=== PATIENT | male | born 1970 | race Caucasian/White ===

== ENCOUNTER → 2018-03-06 09:39 | Outpatient (CLI) | payer OTHER, SELFPAY ==
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
--- NOTE | 2018-03-06 09:44 | DI.RAD.S_ITS ---
PROCEDURE: XR CERVICAL SPINE 2V OR 3V INDICATIONS: CERVICAL STRAIN TECHNIQUE: 2 view(s) of the cervical spine were acquired. COMPARISON: None. FINDINGS: Bones: No fractures or dislocations to the T1 level. The lateral masses of C1 appear intact on the odontoid view. No suspicious bony lesions. Mild intervertebral degenerative joint space thinning at C5-6 and C6-7, without subluxation Soft tissues: No prevertebral soft tissue swelling. IMPRESSION: Only a small degree of degenerative disc reduction is seen at C5-6 through C6-7 and no trauma is found nor is there a subluxation associated. Dictated by: Sanjay Orlando M.D. on 03/06/2018 at 10:51 Approved by: Sanjay Orlando M.D. on 03/06/2018 at 10:51
== END ==
PROVIDERS: PCP Family Medicine
DX: M54.2 Cervicalgia (principal); S16.1XXA Strain of muscle, fascia and tendon at neck level, initial encounter; S46.911A Strain of unspecified muscle, fascia and tendon at shoulder and upper arm level, right arm, initial encounter
CPT/HCPCS: 72040; 73030

== ENCOUNTER → 2018-10-01 13:39 | Outpatient (CLI) | payer OTHER, SELFPAY ==
[2018-10-01 13:52] LABS: Add Manual Diff / Slide Review NO; Basophils Absolute Auto 100 /uL (0-100); Basophils Percent Auto 1.4 % (0-2); Eosinophils Absolute Auto 100 /uL (0-450); Eosinophils Percent Auto 2.3 % (2-4); Hematocrit 46.1 % (41-53); Hemoglobin 16.3 g/dL (13.5-17.5); Lymphocytes Absolute Auto 1600 /uL (1100-4500); Lymphocytes Percent Auto 37.4 % (25-40); Mean Corpuscular HGB Conc 35.3 % (30-36); Mean Corpuscular Hemoglobin 31.8 PG (26-34); Mean Corpuscular Volume 90.1 fL (80-100); Monocytes Absolute Auto 500 /uL (0-900); Neutrophils Absolute Auto 2000 /uL (1500-7000); Neutrophils Percent Auto 47.9 % (50-75); Platelet Count 217 X10^3/uL (150-400); Red Blood Cell Count 5.12 X10^6/uL (4.5-5.9); Red Cell Distribution Width 12.9 % (11.6-14.8); White Blood Cell Count 4.3 X10^3/uL (4.5-11.0)
[2018-10-01 20:33] LABS: Alanine Aminotransferase 57 IU/L (21-72); Albumin 4.4 g/dL (3.5-5.0); Albumin Globulin Ratio 1.6 (1.0-2.8); Alkaline Phosphatase 77 U/L (38-126); Aspartate Aminotransferase 36 IU/L (17-59); Bilirubin Total 0.6 mg/dL (0.2-1.3); Blood Urea Nitrogen 16 mg/dL (9-20); Calcium 9.5 mg/dL (8.4-10.2); Carbon Dioxide 27 mmol/L (22-32); Chloride 103 mmol/L (98-107); Cholesterol 228 mg/dL (140-199); Estimated Glomerular Filt Rate > 60.0 mL/min (>60); Globulin 2.8 g/dL (1.7-4.1); Glucose 107 mg/dL (70-100); HDL Cholesterol 47 mg/dL (40-60); HEMOLYSIS < 15 (0-50); LDL Cholesterol Calculated 148 mg/dL (<100); Potassium 4.4 mmol/L (3.4-5.1); Sodium 139 mmol/L (137-145); Total Protein 7.2 g/dL (6.3-8.2); Triglycerides 163 mg/dL (35-150)
[2018-10-04 08:40] LABS: Sex Hormone Binding Globulin 34 nmol/L (10-50); Testosterone, Bioavailable 79.6 ng/dL (110.0-575.0); Testosterone, Total 312 ng/dL (250-1100); Testosterone,Free 38.7 pg/mL (46.0-224.0)
[2018-10-05 11:04] LABS: Sex Hormone Binding Globulin 22 nmol/L (10-50)
[2018-10-07 12:49] LABS: Albumin 4.5
== END ==
PROVIDERS: PCP Physician Assistant; Visit Provider Physician Assistant
DX: E03.9 Hypothyroidism, unspecified (principal); E78.5 Hyperlipidemia, unspecified; K21.9 Gastro-esophageal reflux disease without esophagitis
CPT/HCPCS: 36415; 80053; 80061; 82040; 84270; 84403; 85025

== ENCOUNTER → 2018-12-02 08:41 | Outpatient (CLI) | payer OTHER, SELFPAY ==
--- NOTE | 2018-12-02 08:42 | DI.RAD.S_ITS ---
PROCEDURE: FL BARIUM SWALLOW W SPEECH INDICATIONS: Dysphagia; food gets stuck; trouble w/saliva TECHNIQUE: Examination was conducted in conjunction with speech pathology per standard protocol. In the lateral projection, filming was performed of the patient swallowing. AP projection filming may also be performed with patient swallowing. COMPARISON: [facility], , BARIUM SWALLOW, 07/27/2014, 8:35. FINDINGS: Function: The oral preparatory phase appears normal, with proper containment. The subsequent oral propulsive phase, pharyngeal phase, and esophageal phase of swallowing also appear normal with all proffered substances. No laryngotracheal penetration or aspiration There is mild residue. Morphology: No cricopharyngeal bar is identified. No cervical esophageal webs. No Zenker's diverticulum. No strictures. IMPRESSION: No tracheal aspiration seen. Dictated by: Deniz Bowden M.D. on 12/02/2018 at 11:43 Approved by: Deniz oBwden M.D. on 12/02/2018 at 11:43
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
== END ==
PROVIDERS: PCP Physician Assistant; Visit Provider Physician Assistant
DX: R13.10 Dysphagia, unspecified (principal); K21.9 Gastro-esophageal reflux disease without esophagitis
CPT/HCPCS: 74230; 92611

== ENCOUNTER 2018-12-31 15:16 | Outpatient (RCR) | payer OTHER, SELFPAY ==
--- NOTE | 2018-12-31 18:31 | ST.IPDYTX ---
Care Team Visit Care Team Role Provider Type Felicia Muro PA-C Attending Provider Advanced Data Operations Director Primary Care Provider Specialty: Medical Address: [address] [place] [address], [address] Email: [email or web address] PROJECT INSPECTOR Dysphagia Treatment PROJECT INSPECTOR Dysphagia Treatment Start: 12/31/18 17:39 Freq: Status: Active Protocol: Document 12/31/18 17:39 LNK (Rec: 12/31/18 18:29 LNK [email or web address]) Dysphagia Treatment Session Time Visit Start Time 15:30 Visit Stop Time 15:15 Total Visit Minutes 45 Visit Information Visit Number 1 Plan of Care Dates 12/31/18-04/02/19 Insurance Information [facility] Setting Assessment Location Outpatient Care Visit Type Note Type Treatment Note Next Note Type Next Note Type Treatment Note Patient Information Identification Type Name Subjective Observations Uriah was on time for his appointment Treatment Treatment Activities Reviewed the results of pt's MBS report and video with him. Discussion and patient education regarding normal anatomy and physiology with swallowing. Reviewed with pt areas of weakness in the linguapharyngeal areas. Discussed upcoming ENT appointment as voice was becoming more hoase as the session continued. Swallowing exercises were prescribed : Musako and the Howard maneuver. Instruction verbally as well as written directions were provided. Pt practiced each 3 times. Recommended 50-100 repetitions per day to achieve max benefit. Pt agrees. Assessment Patient Response to Treatment Excellent Rehab Potential Excellent Aspiration Precautions Recommended Precautions Howard Maneuver Additional Precautions Musako Treatment Plan Appropriate for Continued Therapy Yes Dysphagia Goals Pt will perform HEP as directed. Pt will demonstrate increased ability to perform anterior hyoid movement as determined by palpation. Pt will report a reduction in a sense of globus and difficulty with swallowing. Referrals/Other Recommended Referrals GI Consult ENT Consult
--- NOTE | 2019-02-27 11:34 | ST.IPDYTX ---
Visit Care Team Role Provider Type Felicia Muro PA-C Attending Provider Advanced Consulting Practice Director Primary Care Provider Specialty: Medical Address: [address] [place] [address], [address], [place], [address] Email: [email or web address] DNA ANALYST Dysphagia Treatment DNA ANALYST Dysphagia Treatment Start: 12/31/18 17:39 Freq: Status: Active Protocol: Document 02/27/19 11:31 LNK (Rec: 02/27/19 11:34 LNK [email or web address]) Dysphagia Treatment Visit Type Note Type Discharge Summary Treatment Treatment Activities On 12/31/18, this DNA ANALYST reviewed the results of pt's MBS report and video with him. Discussion and patient education regarding normal anatomy and physiology with swallowing. Reviewed with pt areas of weakness in the linguapharyngeal areas. Discussed upcoming ENT appointment as voice was becoming more hoarse as the session continued. Swallowing exercises were prescribed : Musako and the Howard manuever. Instruction verbally as well as wrttien directions were provided. Pt practiced each 3 times. Recommended 50-100 repetitions per day to achieve max benefit. Pt agreed. Assessment Assessment of Improvement pt has not returned to this clinic for follow up since . Will discharge at this time Treatment Plan Therapy Recommendations Discharge from therapy at this time
== END 2019-03-14 11:39 | disposition home or self-care (01) ==
LOC: SP 15:16
PROVIDERS: PCP Physician Assistant; Visit Provider Physician Assistant
DX: R13.10 Dysphagia, unspecified (principal)
CPT/HCPCS: 92526

== ENCOUNTER → 2019-01-27 07:12 | Outpatient (CLI) | payer OTHER, SELFPAY ==
[2019-01-27 09:22] LABS: Cholesterol 239 mg/dL (140-199); HDL Cholesterol 44 mg/dL (40-60); LDL Cholesterol Calculated 165 mg/dL (<100); Triglycerides 148 mg/dL (35-150)
[2019-01-27 09:52] LABS: Prostate Specific Antigen Scrn 0.452 ng/mL (0.1-4.0)
[2019-01-27 09:54] LABS: Thyroid Stimulating Hormone 2.28 uIU/mL (0.47-4.68)
== END ==
PROVIDERS: PCP Physician Assistant; Visit Provider Physician Assistant
DX: E78.2 Mixed hyperlipidemia (principal); Z12.5 Encounter for screening for malignant neoplasm of prostate; E03.9 Hypothyroidism, unspecified
CPT/HCPCS: 36415; 80061; 84443; G0103

== ENCOUNTER 2019-06-02 15:21 | Outpatient (RCR) | payer OTHER, SELFPAY ==
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
--- NOTE | 2019-08-05 11:31 | ST.OPDS ---
Visit Care Team Role Provider Type Felicia Muro PA-C Attending Provider Advanced Body Service Team Member Primary Care Provider Address: [address] [place] [address], [address], [place], [address] CHARGING CRANE OPERATOR Treatment Note CHARGING CRANE OPERATOR Treatment Note Start: 06/05/19 11:54 Freq: Status: Active Protocol: Document 08/05/19 11:28 LNK (Rec: 08/05/19 11:31 LNK [email or web address]) Speech Pathology Treatment Note Visit Type Note Type Discharge Summary General Information General Information The pt is here today to evaluate his difficulty with his voice; he reports being is unable to speaking for a full day. He described that his voice is ok in the morning and will fade to near aphonic by night time. He reported that he had not seen an ENT re : his voice. He also reported a lot of phlegm and mucous in his throat, especially in the morning. He will often clear his throat several times after waking up. His s/sx suggest that his vocal difficulty may be related to his dx of GERD/ LPR. [ End ] The pt presented with breathy vocal quality which increases during to day to near aphonia by the end of the day. His evaluation results are mixed: 1) his MPT, pitch glide and s/ z ration indicate poor airway control for voicing. These results appear to indicate vocal fold swelling and/or stiffness. However, the pt's jitter and shimmer values as well as his pitch appear to be within normal expectations. The pt's responses on the CAPE -V indicate mixed results as well. His score of 54 on the Voice Handicap Index (VHI) is considered to have a moderate impact on the pt's daily activities. He completed the Reflux Symptom Index which resulted in a score of 26. According to the normative data, any score over 13 may be indicative of severe reflux disease. Assessment Assessment of Improvement Uriah has not been seen for ST since his initial evaluation Plan Amount of Therapy Recommended No Further Therapy Frequency of Treatment No Further Therapy Therapy Recommendations Discharge from Speech Therapy
== END 2019-08-05 13:09 ==
LOC: SP 15:21
PROVIDERS: PCP Physician Assistant; Visit Provider Physician Assistant
DX: R13.10 Dysphagia, unspecified (principal)
CPT/HCPCS: 92520; 92524

== ENCOUNTER 2019-11-01 08:11 | Emergency (ER) | payer OTHER, SELFPAY ==
[2019-11-01 08:12] VITALS: BP 146/88; PULSE 72; RESP 18; TEMP 36.3; O2SAT 98; BMI 27.8
--- NOTE | 2019-11-01 08:36 | ED_ITS ---
HPI - Wound/Laceration General Chief Complaint: Wound/Laceration Stated Complaint: possible shingles face Time Seen by Provider: 11/01/19 08:13 Source: patient Mode of arrival: Ambulatory Limitations: no limitations History of Present Illness HPI narrative: 49-year-old male nonsmoker with history of GERD presents with a chief complaint of a painful ?rash? on the right side of his face. He states that he has noticed a burning or tingling sensation and then developed what he thought at 1st was an ingrown hair after shaving but states that the sensation of tingling and burning pain is moving upwards on his face. He denies any fever or chills. He denies any history of the same. He did have chickenpox as a child. He denies any headache, blurred vision or eye pain. Onset (ago): day(s) Location: face Related Data Home Medications Medication Instructions Recorded Confirmed fluorouracil 5 % topical cream 1 applictn TOP BID PRN 09/30/18 09/23/19 levothyroxine 125 mcg tablet 125 mcg PO DAILY 09/30/18 09/23/19 pantoprazole 40 mg tablet,delayed See Rx Instructions PO 3XW tab 09/30/18 09/23/19 release red yeast rice 600 mg capsule 1,200 mg PO BID 09/30/18 09/23/19 Previous Rx's Medication Instructions Recorded tadalafil 5 mg tablet 5 mg PO DAILY #90 tab 06/02/19 amoxicillin 875 mg tablet 875 mg PO BID #14 tab 09/23/19 fexofenadine 180 mg tablet 180 mg PO DAILY #30 tab 10/28/19 mupirocin 1 applictn TOP BID #15 gram 11/01/19 valacyclovir 1,000 mg PO TID 7 Days #21 tab 11/01/19 Allergies Allergy/AdvReac Type Severity Reaction Status Date / Time [id number] Reductase AdvReac Severe muscle pain Verified 11/01/19 08:18 Inhibitor Review of Systems Constitutional Constitutional: Denies chills, Denies fatigue, Denies fever(s), Denies frequent falls, Denies lethargy and Denies weakness Eyes Eyes: Denies change in vision, Denies eye discharge, Denies irritation and Denies loss of vision ENT Ears, Nose, Mouth, and Throat: Denies change in voice, Denies dizziness, Denies neck pain, Denies sore throat and Denies throat swelling Cardiovascular Cardiovascular: Denies chest pain, Denies irregular heart rhythm, Denies lightheadedness, Denies palpitations, Denies dyspnea, Denies dyspnea on exertion and Denies orthopnea Respiratory Respiratory: Denies cough, Denies dyspnea, Denies dyspnea on exertion and Denies wheezing Gastrointestinal Gastrointestinal: Denies abdominal pain, Denies change in bowel habits, Denies diarrhea, Denies nausea and Denies vomiting Genitourinary Genitourinary: Denies hematuria, Denies flank pain, Denies urinary incontinence and Denies urinary urgency Musculoskeletal Musculoskeletal: Denies back pain, Denies muscle weakness, Denies neck pain, Denies numbness and Denies tingling Integumentary/Breasts Skin/Breast: Denies pruritus, Reports erythema, Reports rash, Reports skin pain and Denies wounds Neurologic Neurologic: Denies behavioral changes, Denies confusion, Denies dizziness, Denies frequent falls, Denies loss of vision, Denies numbness, Denies tingling and Denies weakness Psychiatric Psychiatric: Denies anxiety, Denies behavioral changes, Denies confusion, Denies depression, Denies homicidal ideation and Denies suicidal ideation Endocrine Endocrine: Denies fatigue, Denies flushing and Denies palpitations Hematologic/Lymphatic Hematologic/Lymphatic: Denies easy bruising Allergic/Immunologic Allergic/Immunologic: Denies urticaria, Denies throat swelling and Denies wheezing Patient History Social History Smoking Status: Never smoker second hand exposure: No alcohol intake: current (mixed cocktail 3 times a week. ) substance use type: does not use Smoking Status: Never smoker Exam Narrative Exam Narrative: GEN: AOx3 and in mild distress EYES: Pupils are equal, round, and reactive to light and accommodation. Extraoccular muscles are intact bilaterally. There is no subconjunctival hemorrhage or exudate. CHEST: Lungs are clear to auscultation bilaterally and free of wheezes, rales, or rhonchi. Heart rate is regular rhythm, there are no murmurs, clicks, rubs, or gallops. There is no chest wall tenderness. ABD: Abdomen is soft and nontender. There is no guarding or rebound. Bowel sounds are normal in all 4 quadrants. There is no mass or organomegaly. EXT: Full painless ROM of all extremities with no loss of sensation or strength. SKIN: Few blisters like lesions on right side of cheek with minimal surrounding erythema. Warm, pink, and dry. No erythema or rash otherwise Initial Vital Signs Initial Vital Signs: Vital Signs Temperature 97.3 F L 11/01/19 08:12 Pulse Rate 72 11/01/19 08:12 Respiratory Rate 18 11/01/19 08:12 Blood Pressure 146/88 H 11/01/19 08:12 Pulse Oximetry 98 11/01/19 08:12 Course Vital Signs Vital signs: Vital Signs - 8 hr 11/01/19 08:12 Temperature 97.3 F L Pulse Rate 72 Respiratory Rate 18 Blood Pressure 146/88 H Pulse Oximetry 98 MDM - Wound/Laceration MDM Narrative Medical decision making narrative: Cellulitis or folliculitis considered given skin pain and possible pustule, however shingles also considered given burning, tingling sensation to skin prior to rash showing. Return precautions given and discussion provided to patient answered questions to his apparent satisfaction. Discharge Plan Departure Patient Disposition: Home Clinical Impression: Folliculitis Shingles Qualifiers: Herpes zoster complications: without complications Qualified Code(s): B02.9 - Zoster without complications Discharge Date/Time: 11/01/19 08:48 Instructions: DI for Shingles, DI for Folliculitis Activity Restrictions/Additional Instructions: *You have been diagnosed with [foliculitis versus early facial shingles] *What to do: *Take medications as directed: electronically transmitted to [facility] *Follow up with your primary care provider in 2-3 days, call for an appointment. Let them know you were seen in the Emergency Department and that we ask that you be seen in follow up *Return to ER if you should have any new, worsening or concerning symptoms, such as [eye pain, blurring of vision, excessive tearing, facial swelling or other bothersome symptoms ] Prescriptions: New mupirocin 2 % ointment 1 applictn TOP BID Qty: 15 RF: 0 valacyclovir 1 gram tablet 1,000 mg PO TID 7 Days Qty: 21 RF: 0 No Action amoxicillin 875 mg tablet 875 mg PO BID Qty: 14 RF: 0 tadalafil 5 mg tablet 5 mg PO DAILY Qty: 90 RF: 2 fexofenadine [Rachel Allergy] 180 mg tablet 180 mg PO DAILY Qty: 30 RF: 0 fluorouracil 5 % cream 1 applictn TOP BID PRNRF: 0 pantoprazole 40 mg tablet,delayed release (DR/EC) See Rx Instructions PO 3XW RF: 0 red yeast rice 600 mg capsule 1,200 mg PO BID RF: 0 levothyroxine [Synthroid] 125 mcg tablet 125 mcg PO DAILY RF: 0 Referrals: [facility] [Outside] Felicia Muro PA-C [Primary Care Provider] -
== END 2019-11-01 08:48 | disposition home or self-care (01) ==
PROVIDERS: Emergency Provider Emergency Medicine; PCP Physician Assistant
DX: B02.9 Zoster without complications (principal); L73.9 Follicular disorder, unspecified
CPT/HCPCS: 99281

== ENCOUNTER → 2020-03-15 12:54 | Outpatient (CLI) | payer OTHER, SELFPAY ==
--- NOTE | 2020-03-15 | DI.RAD.S_ITS ---
PROCEDURE: XR ANKLE LT MIN 3V INDICATIONS: Pain TECHNIQUE: 3 views of the ankle were acquired. COMPARISON: None. FINDINGS: Bones: No fractures or dislocations. Ankle mortise is normally aligned. No suspicious bony lesions. Soft tissues: No tibiotalar joint effusion. Achilles tendon appears normal. IMPRESSION: No fracture. If the patient's symptoms do not improve recommend followup radiographs in 10 days to assess for healing sclerosis/occult injury. Dictated by: Deniz Bowden M.D. on 03/15/2020 at 14:20 Approved by: Deniz Bowden M.D. on 03/15/2020 at 14:29
== END ==
PROVIDERS: PCP Family Medicine; Referring Provider Family Medicine; Visit Provider Family Medicine
DX: S93.402A Sprain of unspecified ligament of left ankle, initial encounter (principal); M25.572 Pain in left ankle and joints of left foot; X58.XXXA Exposure to other specified factors, initial encounter
CPT/HCPCS: 73610

== ENCOUNTER → 2020-06-15 11:22 | Outpatient (CLI) | payer OTHER, SELFPAY ==
[2020-06-15 11:43] LABS: Add Manual Diff / Slide Review NO; Basophils Absolute Auto 100 /uL (0-100); Basophils Percent Auto 1.4 % (0-2); Eosinophils Absolute Auto 100 /uL (0-450); Eosinophils Percent Auto 1.9 % (2-4); Hematocrit 54.7 % (41-53); Hemoglobin 18.6 g/dL (13.5-17.5); Lymphocytes Absolute Auto 1400 /uL (1100-4500); Lymphocytes Percent Auto 34.9 % (25-40); Mean Corpuscular HGB Conc 34.1 % (30-36); Mean Corpuscular Hemoglobin 31.3 PG (26-34); Mean Corpuscular Volume 91.8 fL (80-100); Monocytes Absolute Auto 500 /uL (0-900); Monocytes Percent Auto 13.1 % (3-14); Neutrophils Absolute Auto 2000 /uL (1500-7000); Neutrophils Percent Auto 48.7 % (50-75); Platelet Count 248 X10^3/uL (150-400); Red Blood Cell Count 5.96 X10^6/uL (4.5-5.9); Red Cell Distribution Width 13.4 % (11.6-14.8); White Blood Cell Count 4.1 X10^3/uL (4.5-11.0)
[2020-06-16 12:31] LABS: 585 Gram Check PASS; Dizziness NO; Postdiastolic BP 82; Postsystolic BP 125; Prediastolic 79; Presystolic 133; Pulse 74; Site of phlebotomy LAC; Swelling NO; Therapeutic Phleb Comment NO COMMENT; Zero Check Sebra Scale PASS
== END ==
PROVIDERS: PCP Family Medicine; Referring Provider Family Medicine; Visit Provider Family Medicine
DX: Z14.8 Genetic carrier of other disease (principal); D75.1 Secondary polycythemia
CPT/HCPCS: 36415; 85025; 99195

== ENCOUNTER → 2020-07-14 11:51 | Outpatient (CLI) | payer OTHER, SELFPAY ==
[2020-07-14 12:22] LABS: Add Manual Diff / Slide Review NO; Basophils Absolute Auto 0 /uL (0-100); Basophils Percent Auto 1.2 % (0-2); Eosinophils Absolute Auto 100 /uL (0-450); Eosinophils Percent Auto 1.8 % (2-4); Hematocrit 53.5 % (41-53); Hemoglobin 18.1 g/dL (13.5-17.5); Lymphocytes Absolute Auto 1400 /uL (1100-4500); Lymphocytes Percent Auto 36.5 % (25-40); Mean Corpuscular HGB Conc 33.8 % (30-36); Mean Corpuscular Hemoglobin 31.2 PG (26-34); Mean Corpuscular Volume 92.5 fL (80-100); Monocytes Absolute Auto 500 /uL (0-900); Monocytes Percent Auto 12.8 % (3-14); Neutrophils Absolute Auto 1800 /uL (1500-7000); Neutrophils Percent Auto 47.7 % (50-75); Platelet Count 235 X10^3/uL (150-400); Red Blood Cell Count 5.79 X10^6/uL (4.5-5.9); Red Cell Distribution Width 13.6 % (11.6-14.8); White Blood Cell Count 3.9 X10^3/uL (4.5-11.0)
[2020-07-14 12:40] LABS: 585 Gram Check PASS; Dizziness NO; Postdiastolic BP 87; Postsystolic BP 138; Prediastolic 85; Presystolic 143; Pulse 67; Site of phlebotomy RAC; Swelling NO; Therapeutic Phleb Comment NO COMMENT; Zero Check Sebra Scale PASS
== END ==
PROVIDERS: PCP Family Medicine; Referring Provider Family Medicine; Visit Provider Family Medicine
DX: Z14.8 Genetic carrier of other disease (principal); D75.1 Secondary polycythemia
CPT/HCPCS: 36415; 85025; 99195

== ENCOUNTER → 2020-08-11 12:00 | Outpatient (CLI) | payer OTHER, SELFPAY ==
[2020-08-11 12:40] LABS: 585 Gram Check PASS; Prediastolic 87; Presystolic 143; Pulse 67; Site of phlebotomy LAC; Zero Check Sebra Scale PASS
[2020-08-11 12:41] LABS: Dizziness NO; Postdiastolic BP 93; Postsystolic BP 140; Swelling NO; Therapeutic Phleb Comment NO COMMENT
[2020-08-11 14:05] LABS: Add Manual Diff / Slide Review NO; Basophils Absolute Auto 100 /uL (0-100); Basophils Percent Auto 1.1 % (0-2); Eosinophils Absolute Auto 100 /uL (0-450); Eosinophils Percent Auto 2.2 % (2-4); Hematocrit 52.3 % (41-53); Hemoglobin 17.7 g/dL (13.5-17.5); Lymphocytes Absolute Auto 1600 /uL (1100-4500); Lymphocytes Percent Auto 30.8 % (25-40); Mean Corpuscular HGB Conc 33.9 % (30-36); Mean Corpuscular Hemoglobin 31.5 PG (26-34); Mean Corpuscular Volume 93.2 fL (80-100); Monocytes Absolute Auto 500 /uL (0-900); Neutrophils Absolute Auto 2900 /uL (1500-7000); Neutrophils Percent Auto 55.9 % (50-75); Platelet Count 248 X10^3/uL (150-400); Red Blood Cell Count 5.61 X10^6/uL (4.5-5.9); Red Cell Distribution Width 13.1 % (11.6-14.8); White Blood Cell Count 5.3 X10^3/uL (4.5-11.0)
[2020-08-18 13:44] LABS: SARS CoV19 IgG Negative
== END ==
PROVIDERS: PCP Family Medicine; Referring Provider Family Medicine; Visit Provider Family Medicine
DX: Z14.8 Genetic carrier of other disease (principal); D75.1 Secondary polycythemia; Z20.822 Contact with and (suspected) exposure to COVID-19; J06.9 Acute upper respiratory infection, unspecified
CPT/HCPCS: 85025; 86769; 99195

== ENCOUNTER → 2020-09-08 11:53 | Outpatient (CLI) | payer OTHER, SELFPAY ==
[2020-09-08 12:56] LABS: Zero Check Sebra Scale PASS
[2020-09-08 12:57] LABS: 585 Gram Check PASS; Dizziness NO; Postdiastolic BP 89; Postsystolic BP 149; Prediastolic 87; Presystolic 141; Pulse 63; Site of phlebotomy RAC; Swelling NO; Therapeutic Phleb Comment NO COMMENT
[2020-09-08 13:09] LABS: Add Manual Diff / Slide Review NO; Basophils Absolute Auto 100 /uL (0-100); Basophils Percent Auto 1.1 % (0-2); Eosinophils Absolute Auto 100 /uL (0-450); Eosinophils Percent Auto 2.1 % (2-4); Hematocrit 48.8 % (41-53); Hemoglobin 16.9 g/dL (13.5-17.5); Lymphocytes Absolute Auto 1500 /uL (1100-4500); Lymphocytes Percent Auto 33.4 % (25-40); Mean Corpuscular HGB Conc 34.7 % (30-36); Mean Corpuscular Hemoglobin 31.3 PG (26-34); Mean Corpuscular Volume 90.2 fL (80-100); Monocytes Absolute Auto 500 /uL (0-900); Monocytes Percent Auto 10.9 % (3-14); Neutrophils Absolute Auto 2400 /uL (1500-7000); Neutrophils Percent Auto 52.5 % (50-75); Platelet Count 249 X10^3/uL (150-400); Red Blood Cell Count 5.41 X10^6/uL (4.5-5.9); White Blood Cell Count 4.5 X10^3/uL (4.5-11.0)
[2020-09-09 13:19] LABS: SARS CoV19 IgG Negative (Negative)
== END ==
PROVIDERS: PCP Family Medicine; Referring Provider Family Medicine; Visit Provider Family Medicine
DX: Z86.16 Personal history of COVID-19 (principal); Z14.8 Genetic carrier of other disease; D75.1 Secondary polycythemia
CPT/HCPCS: 36415; 85025; 86769; 99195

== ENCOUNTER → 2021-02-03 10:01 | Outpatient (CLI) | payer OTHER, SELFPAY ==
[2021-02-03 10:36] LABS: 585 Gram Check PASS; Dizziness NO; Postdiastolic BP 86; Postsystolic BP 126; Prediastolic 86; Presystolic 126; Pulse 61; Site of phlebotomy LAC; Swelling NO; Temperature 98.2; Therapeutic Phleb Comment NO COMMENT; Zero Check Sebra Scale PASS
[2021-02-03 11:45] LABS: Add Manual Diff / Slide Review NO; Basophils Absolute Auto 0 /uL (0-100); Basophils Percent Auto 1.2 % (0-2); Eosinophils Absolute Auto 200 /uL (0-450); Eosinophils Percent Auto 5.1 % (2-4); Hematocrit 51.7 % (41-53); Hemoglobin 17.1 g/dL (13.5-17.5); Lymphocytes Absolute Auto 1500 /uL (1100-4500); Lymphocytes Percent Auto 39.1 % (25-40); Mean Corpuscular Hemoglobin 28.2 PG (26-34); Mean Corpuscular Volume 85.7 fL (80-100); Monocytes Absolute Auto 400 /uL (0-900); Monocytes Percent Auto 11.8 % (3-14); Neutrophils Absolute Auto 1600 /uL (1500-7000); Neutrophils Percent Auto 42.8 % (50-75); Platelet Count 200 X10^3/uL (150-400); Red Blood Cell Count 6.04 X10^6/uL (4.5-5.9); Red Cell Distribution Width 16.2 % (11.6-14.8); White Blood Cell Count 3.8 X10^3/uL (4.5-11.0)
== END ==
PROVIDERS: PCP Family Medicine; Referring Provider Family Medicine; Visit Provider Family Medicine
DX: Z14.8 Genetic carrier of other disease (principal); D75.1 Secondary polycythemia
CPT/HCPCS: 85025; 99195

== ENCOUNTER → 2021-03-16 11:44 | Outpatient (CLI) | payer OTHER, SELFPAY ==
[2021-03-16 12:32] LABS: Zero Check Sebra Scale PASS
[2021-03-16 12:33] LABS: 585 Gram Check PASS; Dizziness NO; Postdiastolic BP 88; Postsystolic BP 132; Prediastolic 88; Presystolic 143; Pulse 64; Site of phlebotomy RAC; Swelling NO; Temperature 97.9; Therapeutic Phleb Comment NO COMMENT
== END ==
PROVIDERS: PCP Family Medicine; Referring Provider Family Medicine; Visit Provider Family Medicine
DX: Z14.8 Genetic carrier of other disease (principal); D75.1 Secondary polycythemia
CPT/HCPCS: 99195

== ENCOUNTER → 2021-04-05 12:36 | Outpatient (CLI) | payer OTHER, SELFPAY ==
--- NOTE | 2021-04-05 | DI.RAD.S_ITS ---
PROCEDURE: XR CHEST 2V INDICATIONS: Cough/Viral Illness TECHNIQUE: 2 views of the chest were acquired. COMPARISON: [facility], , CHEST 2 VIEW, 09/25/2016, 15:40. FINDINGS: Surgical changes and devices: None. Lungs and pleura: Lungs are clear. No pleural effusions or pneumothorax. Mediastinum: Mediastinal contours are normal. Heart size is normal. Bones and chest wall: No suspicious bony abnormalities. Soft tissues appear unremarkable. IMPRESSION: No acute cardiopulmonary abnormality. Dictated by: Jose Guadalupe Ritchie M.D. on 04/05/2021 at 12:49 Approved by: Jose Guadalupe Ritchie M.D. on 04/05/2021 at 12:50
== END ==
PROVIDERS: PCP Family Medicine; Referring Provider Family Medicine; Visit Provider Family Medicine
DX: R05.9 Cough, unspecified (principal); B34.9 Viral infection, unspecified
CPT/HCPCS: 71046

== ENCOUNTER → 2021-04-19 11:56 | Outpatient (CLI) | payer OTHER, SELFPAY ==
[2021-04-19 12:37] LABS: 585 Gram Check PASS; Dizziness NO; Postdiastolic BP 86; Postsystolic BP 139; Prediastolic 79; Presystolic 124; Pulse 74; Site of phlebotomy RAC; Swelling NO; Temperature 98.3; Therapeutic Phleb Comment NO COMMENT; Zero Check Sebra Scale PASS
== END ==
PROVIDERS: PCP Family Medicine; Referring Provider Family Medicine; Visit Provider Family Medicine
DX: Z14.8 Genetic carrier of other disease (principal); D75.1 Secondary polycythemia
CPT/HCPCS: 99195

== ENCOUNTER → 2021-05-17 11:59 | Outpatient (CLI) | payer OTHER, SELFPAY ==
[2021-05-17 12:40] LABS: 585 Gram Check PASS; Postdiastolic BP 75; Postsystolic BP 128; Prediastolic 82; Presystolic 125; Pulse 74; Site of phlebotomy LAC; Swelling NO; Temperature 97.7; Zero Check Sebra Scale PASS
[2021-05-17 12:41] LABS: Add Manual Diff / Slide Review NO; Basophils Absolute Auto 100 /uL (0-100); Basophils Percent Auto 1.5 % (0-2); Dizziness NO; Eosinophils Absolute Auto 100 /uL (0-450); Eosinophils Percent Auto 2.5 % (2-4); Hematocrit 44.1 % (41-53); Hemoglobin 14.5 g/dL (13.5-17.5); Lymphocytes Absolute Auto 1400 /uL (1100-4500); Lymphocytes Percent Auto 36.6 % (25-40); Mean Corpuscular HGB Conc 32.9 % (30-36); Mean Corpuscular Hemoglobin 26.9 PG (26-34); Mean Corpuscular Volume 81.7 fL (80-100); Monocytes Absolute Auto 400 /uL (0-900); Monocytes Percent Auto 10.4 % (3-14); Neutrophils Absolute Auto 1900 /uL (1500-7000); Platelet Count 283 X10^3/uL (150-400); Red Cell Distribution Width 15.3 % (11.6-14.8); Therapeutic Phleb Comment NO COMMENT; White Blood Cell Count 3.8 X10^3/uL (4.5-11.0)
== END ==
PROVIDERS: PCP Family Medicine; Referring Provider Family Medicine; Visit Provider Family Medicine
DX: Z14.8 Genetic carrier of other disease (principal); D75.1 Secondary polycythemia
CPT/HCPCS: 36415; 85025; 99195

== ENCOUNTER → 2022-06-19 10:48 | Outpatient (CLI) | payer OTHER, SELFPAY ==
--- NOTE | 2022-06-19 | DI.RAD.S_ITS ---
PROCEDURE: XR CHEST 2V INDICATIONS: dyspnea TECHNIQUE: 2 views of the chest were acquired. COMPARISON: [facility], CR, XR CHEST 2V, 04/05/2021, 12:42. FINDINGS: Surgical changes and devices: None. Lungs and pleura: Lungs are clear. No pleural effusions or pneumothorax. Mediastinum: Mediastinal contours are normal. Heart size is normal. Bones and chest wall: No suspicious bony abnormalities. Soft tissues appear unremarkable. IMPRESSION: No acute cardiopulmonary pathology. Dictated by: Sandeep Thibodeaux M.D. on 06/19/2022 at 14:16 Approved by: Sandeep Thibodeaux M.D. on 06/19/2022 at 14:37
== END ==
PROVIDERS: PCP Family Medicine; Referring Provider Family Medicine; Visit Provider Family Medicine
DX: R06.00 Dyspnea, unspecified (principal)
CPT/HCPCS: 71046

== ENCOUNTER → 2022-07-12 12:47 | Outpatient (CLI) | payer OTHER, SELFPAY ==
--- NOTE | 2022-07-12 | DI.CT.S_ITS ---
PROCEDURE: CT CHEST W CON INDICATIONS: Shortness of breath TECHNIQUE: After the administration of intravenous contrast, 5 mm thick sections acquired from the pulmonary apices to the posterior costophrenic angles. 1 mm axial lung, 5 mm thick coronal and sagittal reformats and 7 mm axial MIP were acquired. For radiation dose reduction, the following was used: automated exposure control, adjustment of mA and/or kV according to patient size. COMPARISON: [facility], CR, XR CHEST 2V, 04/05/2021, 12:42. [facility], CR, CHEST 2 VIEW, 09/25/2016, 15:40. [facility], CR, XR CHEST 2V, 06/19/2022, 10:47. FINDINGS: Image quality: Excellent. Lungs and pleura: Lung nodules are present. Reference nodules are listed in the following: Nodule 1: 3 mm; right middle lobe; series 3, image 197. Nodule 2: 2 mm; right upper lobe; series 3, image 164. Nodule 3: 3 mm; lingula; series 3, image 201. No acute air space opacities. No pleural effusions or pneumothorax. Central and peripheral airways are patent and normal in caliber. Mediastinum: Heart size is normal. No pericardial effusion. No mediastinal or hilar adenopathy by size criteria. Thoracic aorta and central pulmonary arteries are normal in size. Esophagus is normal in caliber. Small hiatal hernia. Bones and chest wall: No suspicious bony lesions. No vertebral body compression fractures. No axillary or supraclavicular adenopathy by size criteria. There is a 5 mm nodule in the left thyroid. Abdomen: Mild hepatic steatosis. There is a 1.8 cm hypodense nodule in the superior pole of the left kidney. IMPRESSION: 1. No acute cardiopulmonary process. 2. Bilateral small lung nodules, most likely inflammatory or infectious etiology. Please see enclosed follow-up recommendation. 3. No mediastinal or hilar lymphadenopathy. 4. Small hiatal hernia. Dictated by: Anibal Fan M.D. on 07/12/2022 at 14:44 Approved by: Anibal Fan M.D. on 07/12/2022 at 14:53
== END ==
PROVIDERS: PCP Family Medicine; Referring Provider Family Medicine; Visit Provider Family Medicine
DX: U09.9 Post COVID-19 condition, unspecified (principal); B97.29 Other coronavirus as the cause of diseases classified elsewhere; R06.02 Shortness of breath; R91.8 Other nonspecific abnormal finding of lung field; K44.9 Diaphragmatic hernia without obstruction or gangrene
CPT/HCPCS: 71260; Q9967

== ENCOUNTER → 2022-11-08 13:50 | Outpatient (CLI) | payer OTHER, SELFPAY ==
--- NOTE | 2022-11-08 | DI.CT.S_ITS ---
PROCEDURE: CT SINUS SCREEN WO CON INDICATIONS: CHRONIC SINUITIS, OTITIS MEDIA TECHNIQUE: Noncontrast 3.0 mm axial images acquired from the frontal sinuses to the mid-sella, with coronal and sagittal reformats. For radiation dose reduction, the following was used: automated exposure control, adjustment of mA and/or kV according to patient size. COMPARISON: None. FINDINGS: Image quality: Excellent. Maxillary Sinuses: Hypo pneumatized left maxillary sinus. No mucosal thickening remodeling Ethmoid Air Cells: No bony remodeling or destruction. Sinuses are clear. Sphenoid Sinuses: No bony remodeling or destruction. Sinuses are clear. Frontal Sinuses: No bony remodeling or destruction. Sinuses are clear. Ostiomeatal Complexes: Ostiomeatal complexes are patent. No Livia cells. Miscellaneous: Visualized intra-orbital contents are normal. No alesia bullosa or paradoxical turbinate curvature. No nasal septal deviation. IMPRESSION: Unremarkable CT paranasal sinus Approved by: Shine Costello M.D. on 11/08/2022 at 15:54
== END ==
PROVIDERS: PCP Family Medicine; Referring Provider Family Medicine; Visit Provider Family Medicine
DX: J32.9 Chronic sinusitis, unspecified (principal); H65.90 Unspecified nonsuppurative otitis media, unspecified ear
CPT/HCPCS: 70486

== ENCOUNTER → 2023-05-07 12:04 | Outpatient (CLI) | payer OTHER, SELFPAY ==
--- NOTE | 2023-05-07 12:05 | DI.RAD.S_ITS ---
PROCEDURE: XR CHEST 2V INDICATIONS: cough, shortness of breath TECHNIQUE: 2 views of the chest were acquired. COMPARISON: [facility], CR, XR CHEST 1V, 12/14/2022, 7:02. [facility], CR, XR CHEST 2V, 06/19/2022, 10:47. FINDINGS: Surgical changes and devices: None. Lungs and pleura: Lungs are clear. No pleural effusions or pneumothorax. Mediastinum: Mediastinal contours are normal. Heart size is normal. Bones and chest wall: No suspicious bony abnormalities. Soft tissues appear unremarkable. IMPRESSION: No acute cardiopulmonary abnormality is seen. Dictated by: Anibal Fan M.D. on 05/07/2023 at 16:08 Approved by: Anibal Fan M.D. on 05/07/2023 at 16:10
== END ==
PROVIDERS: PCP Family Medicine; Referring Provider Physician Assistant; Visit Provider Physician Assistant
DX: R06.02 Shortness of breath (principal)
CPT/HCPCS: 71046

== ENCOUNTER → 2023-07-30 11:09 | Outpatient (CLI) | payer OTHER, SELFPAY ==
--- NOTE | 2023-07-30 | DI.MRI.S_ITS ---
PROCEDURE: MR CERVICAL SPINE WO CON INDICATIONS: CERVICAL RADICULOPATHY TECHNIQUE: Noncontrast sagittal T1 spin echo and T2 fast spin echo, sagittal STIR, foraminal oblique sagittal T2 fast spin echo, and axial gradient echo or T2 fast spin echo through the cervical spine. COMPARISON: None. FINDINGS: Image quality: Excellent. Alignment and Curvature: There is normal bony alignment. Bone Marrow: Marrow demonstrates normal overall signal. Spinal Cord: Visualized spinal cord has normal size and signal. No cerebellar tonsillar herniation. Paraspinous Soft Tissues: No paravertebral masses. Prevertebral soft tissues are normal in thickness. C2-C3: Left facet hypertrophy. No canal stenosis or foraminal stenosis. C3-C4: Disc bulge. No canal stenosis. Bilateral facet hypertrophy, left greater than right. Bilateral uncovertebral joint hypertrophy. Moderate to severe left foraminal narrowing with a degree of left foraminal C4 nerve root impingement. C4-C5: No canal stenosis or significant foraminal stenosis. There is a degree of bilateral facet hypertrophy. C5-C6: Chronic disc height loss. Posterior disc bulge. No significant central canal stenosis. Bilateral uncovertebral joint hypertrophy and facet hypertrophy. Moderate to severe bilateral foraminal narrowing with a degree of bilateral foraminal C6 nerve root impingement. C6-C7: Mild chronic disc height loss. Posterior disc bulge. No central canal stenosis. Prominent left uncovertebral joint hypertrophy. Mild right foraminal narrowing. Severe left foraminal narrowing with left foraminal C7 nerve root impingement. C7-T1: No canal stenosis or foraminal stenosis. IMPRESSION: 1. There is multilevel underlying facet arthropathy and uncovertebral joint hypertrophy. 2. No central canal stenosis. 3. Significant multilevel foraminal narrowing as described above. Findings include moderate to severe left foraminal narrowing at C3-C4, moderate to severe bilateral foraminal narrowing at C5-C6, and severe left foraminal narrowing at C6-C7. Dictated by: Omero Orellana M.D. on 07/30/2023 at 12:56 Approved by: Omero Orellana M.D. on 07/30/2023 at 13:02
== END ==
PROVIDERS: PCP Family Medicine; Referring Provider Physical Medicine & Rehabilitation; Visit Provider Physical Medicine & Rehabilitation
DX: M47.22 Other spondylosis with radiculopathy, cervical region (principal); M48.02 Spinal stenosis, cervical region
CPT/HCPCS: 72141

== ENCOUNTER → 2023-08-07 15:15 | Outpatient (ROUT) | payer OTHER, SELFPAY ==
[2023-08-07 15:26] LABS: Add Manual Diff / Slide Review NO; Basophils Absolute Auto 100 /uL (0-100); Basophils Percent Auto 1.3 % (0-2); Eosinophils Absolute Auto 0 /uL (0-450); Eosinophils Percent Auto 0.8 % (2-4); Hematocrit 51.2 % (41-53); Hemoglobin 16.6 g/dL (13.5-17.5); Lymphocytes Absolute Auto 800 /uL (1100-4500); Lymphocytes Percent Auto 17.2 % (25-40); Mean Corpuscular HGB Conc 32.3 % (30-36); Mean Corpuscular Hemoglobin 25.3 PG (26-34); Mean Corpuscular Volume 78.2 fL (80-100); Monocytes Absolute Auto 500 /uL (0-900); Neutrophils Absolute Auto 3400 /uL (1500-7000); Neutrophils Percent Auto 70.7 % (50-75); Platelet Count 260 X10^3/uL (150-400); Red Blood Cell Count 6.55 X10^6/uL (4.5-5.9); Red Cell Distribution Width 18.1 % (11.6-14.8); White Blood Cell Count 4.9 X10^3/uL (4.5-11.0)
[2023-08-07 15:34] LABS: Iron 127 ug/dL (49-181)
[2023-08-07 15:35] LABS: BUN Creatinine Ratio 11.7 (6-22); Blood Urea Nitrogen 13 mg/dL (9-20); Calcium 9.6 mg/dL (8.4-10.2); Carbon Dioxide 25 mmol/L (22-32); Chloride 104 mmol/L (98-107); Estimated Glomerular Filt Rate > 60 mL/min (>60); Glucose 57 mg/dL (70-100); HEMOLYSIS < 15 (0-50); Potassium 4.9 mmol/L (3.4-5.1); Sodium 138 mmol/L (137-145)
[2023-08-07 15:48] LABS: Hemoglobin A1C% w Est Avg Glu 5.6 % (4.0-6.0)
[2023-08-07 16:10] LABS: Ferritin 9 ng/mL (18-464)
== END ==
PROVIDERS: PCP Family Medicine; Visit Provider Family Medicine
DX: D75.1 Secondary polycythemia (principal); E88.810 Metabolic syndrome
CPT/HCPCS: 80048; 82728; 83036; 83540; 85025

== ENCOUNTER → 2023-10-23 14:55 | Outpatient (ROUT) | payer OTHER, SELFPAY ==
[2023-10-23 15:09] LABS: Add Manual Diff / Slide Review NO; Basophils Absolute Auto 0 /uL (0-100); Eosinophils Absolute Auto 100 /uL (0-450); Eosinophils Percent Auto 1.4 % (2-4); Hematocrit 51.5 % (41-53); Hemoglobin 16.3 g/dL (13.5-17.5); Lymphocytes Absolute Auto 1200 /uL (1100-4500); Lymphocytes Percent Auto 26.2 % (25-40); Mean Corpuscular HGB Conc 31.6 % (30-36); Mean Corpuscular Hemoglobin 25.8 PG (26-34); Mean Corpuscular Volume 81.6 fL (80-100); Monocytes Absolute Auto 800 /uL (0-900); Neutrophils Absolute Auto 2500 /uL (1500-7000); Neutrophils Percent Auto 53.4 % (50-75); Platelet Count 280 X10^3/uL (150-400); Red Blood Cell Count 6.31 X10^6/uL (4.5-5.9); Red Cell Distribution Width 17.6 % (11.6-14.8); White Blood Cell Count 4.7 X10^3/uL (4.5-11.0)
[2023-10-23 15:59] LABS: Prostate Specific Antigen 1.65 ng/mL (0.10-4.00)
[2023-10-23 16:02] LABS: Testosterone 636 ng/dL (71.8-623)
== END ==
PROVIDERS: PCP Family Medicine; Visit Provider Family Medicine
DX: N41.0 Acute prostatitis (principal)
CPT/HCPCS: 84153; 84403; 85025; 87086

== ENCOUNTER 2023-10-29 04:10 | Emergency (ER) | payer OTHER, SELFPAY ==
[2023-10-29] VITALS (16 sets, daily range): BP systolic 117–153; BP diastolic 59–105; PULSE 62–109; RESP 20; TEMP 36.3; O2SAT 94–98; BMI 27.8
--- NOTE | 2023-10-29 04:35 | PC.NURSE ---
see triage note for cc description. at bedside,
--- NOTE | 2023-10-29 05:40 | ED_ITS ---
HPI - General Adult <Chelsie Shelton DO - Last Filed: 11/01/23 08:44> General Chief complaint: Fever Stated complaint: MUSCLE PAIN, CHILLS, FEVER Time Seen by Provider: 10/29/23 05:24 Source: patient and family Mode of arrival: Ambulatory Limitations: no limitations History of Present Illness HPI narrative: 53-year-old male with complaint of recent fever, chills, myalgias, bilateral ear pain, sore throat, nasal congestion and drainage. Patient states he has had a cough which has been nonproductive. He states no chest pain, felt a little short of breath. Denies any nausea or vomiting, he had diarrhea a week but none this week. He has had a little bit of sense of urgency, no dysuria or frequency. Patient was started on Bactrim DS for suspected prostatitis after seeing his primary care and having prostate exam he took about 4 days worth of antibiotic and then stopped it. He has not had any rashes or skin changes. Patient did take Tylenol at 10:00 p.m. last night has not had any additional doses since. He does follow with a [facility] clinic through the [place], he has also been on prednisone daily for the past year was originally at 90 mg has been on 5 mg dosage for quite some time and has not had any recent decreasing dose. He also takes levothyroxine, pantoprazole, tadalafil, is on prednisone 5 mg daily. Patient has had adverse reaction to statin. No tobacco, several alcoholic drinks weekly, no recreational drugs. His primary care physician is Dr. Armstrong. Related Data Home Medications Medication Instructions Recorded Confirmed levothyroxine 125 mcg tablet 125 mcg PO DAILY 09/30/18 05/07/23 (Synthroid) pantoprazole 40 mg tablet,delayed See Rx Instructions PO 3XW 09/30/18 05/07/23 release red yeast rice 600 mg capsule 1,200 mg PO BID 09/30/18 05/07/23 Previous Rx's Medication Instructions Recorded tadalafil 5 mg tablet 5 mg PO DAILY #90 tabs 06/02/19 fexofenadine 180 mg tablet 180 mg PO DAILY #30 tabs 10/28/19 (Rachel Allergy) mupirocin 2 % topical ointment 1 applictn topical BID #15 grams 11/01/19 Allergies Allergy/AdvReac Type Severity Reaction Status Date / Time [id number] Reductase AdvReac Severe muscle pain Verified 05/07/23 11:05 Inhibitor [Dieflue-Lnd-Nmy Reductase Inhibitor] Review of Systems <Chelsie Shelton DO - Last Filed: 11/01/23 08:44> Review of Systems ROS Unobtainable: All systems reviewed & are unremarkable except as noted in HPI and below Patient History <Chelsie Shelton DO - Last Filed: 11/01/23 08:44> Social History Smoking Status: Never smoker second hand exposure: No alcohol intake: current (mixed cocktail 3 times a week. ) substance use type: does not use Smoking Status: Never smoker Exam <Chelsie Shelton DO - Last Filed: 11/01/23 08:44> Narrative Exam Narrative: GEN: Well-nourished male, alert and oriented x 3, patient appears to be in mild distress. HEENT: Atraumatic, pupils are equal round reactive to light, extraocular movements are intact, nares are clear, TMs are opacified bilaterally with fluid, no erythema, patient has slight bulge on the right, no loss of light reflex, there is no conjunctival pallor. Throat is erythematous, tight bilateral tonsillar enlargement, no uvular deviation, patient has scant exudate, no stridor or hoarseness. Patient has some slight erythema and flaking skin to face. 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 HEART: Regular rate and rhythm without murmur, clicks, rubs. LUNGS:Lungs clear to auscultation, no wheezes, rales, crackles, chest moves symmetrically ABD:bowel sounds normal, soft, non-tender, no guarding, rebound, rigidity, no masses noted, no hepatosplenomegaly :No CVA tenderness MSCL: Non-tender, no muscle atrophy, muscles strength 5/5 upper and lower extremities, full range of motion, normal gait NEURO:CN 2-12 intact, sensation normal SKIN: No other rash, erythema or skin changes other than the face and neck. Initial Vital Signs Initial Vital Signs: Vital Signs Temperature 97.4 F L 10/29/23 04:15 Pulse Rate 98 H 10/29/23 04:15 Respiratory Rate 20 10/29/23 04:15 Blood Pressure 144/105 H 10/29/23 04:15 Pulse Oximetry 96 10/29/23 04:15 Oxygen Delivery Method Room Air 10/29/23 04:15 <Uriah William MD - Last Filed: 10/29/23 18:58> Initial Vital Signs Initial Vital Signs: Vital Signs Temperature 97.4 F L 10/29/23 04:15 Pulse Rate 98 H 10/29/23 04:15 Respiratory Rate 20 10/29/23 04:15 Blood Pressure 144/105 H 10/29/23 04:15 Pulse Oximetry 96 10/29/23 04:15 Oxygen Delivery Method Room Air 10/29/23 04:15 Course <Chelsie Shelton DO - Last Filed: 11/01/23 08:44> Orders Ordered: Discontinued Medications Acetaminophen (Acetaminophen 325 Mg Tablet) 975 mg PO NOW ONE Stop: 10/29/23 06:01 Last Admin: 10/29/23 06:07 Dose: 975 mg Documented By: JOANA Ondansetron HCl (Ondansetron 4 Mg Odt) 4 mg SL NOW ONE Stop: 10/29/23 07:57 Last Admin: 10/29/23 08:13 Dose: 4 mg Documented By: RB Vital Signs Vital signs: Vital Signs - 8 hr 10/29/23 04:15 10/29/23 04:17 10/29/23 04:17 Temperature 97.4 F L Pulse Rate 98 H 109 H Respiratory Rate 20 Blood Pressure 144/105 H 144/105 H Pulse Oximetry 96 97 Oxygen Delivery Method Room Air 10/29/23 04:30 10/29/23 04:30 10/29/23 05:00 Temperature Pulse Rate 100 H Respiratory Rate Blood Pressure 138/91 H 121/71 Pulse Oximetry 96 Oxygen Delivery Method 10/29/23 05:00 10/29/23 05:30 10/29/23 05:30 Temperature Pulse Rate 93 H 96 H Respiratory Rate Blood Pressure 140/84 Pulse Oximetry 96 96 Oxygen Delivery Method 10/29/23 06:00 10/29/23 06:00 10/29/23 06:30 Temperature Pulse Rate 104 H 90 Respiratory Rate Blood Pressure 130/78 Pulse Oximetry 96 94 Oxygen Delivery Method 10/29/23 06:30 10/29/23 07:00 10/29/23 07:00 Temperature Pulse Rate 81 Respiratory Rate Blood Pressure 153/95 H 136/96 H Pulse Oximetry 95 Oxygen Delivery Method 10/29/23 07:30 10/29/23 07:30 10/29/23 08:00 Temperature Pulse Rate 79 78 Respiratory Rate Blood Pressure 117/59 L Pulse Oximetry 95 96 Oxygen Delivery Method 10/29/23 08:00 10/29/23 08:30 10/29/23 08:30 Temperature Pulse Rate 68 Respiratory Rate Blood Pressure 128/78 117/87 Pulse Oximetry 96 Oxygen Delivery Method 10/29/23 09:00 10/29/23 09:00 Temperature Pulse Rate 71 Respiratory Rate Blood Pressure 125/79 Pulse Oximetry 95 Oxygen Delivery Method <Uriah William MD - Last Filed: 10/29/23 18:58> Orders Ordered: Discontinued Medications Acetaminophen (Acetaminophen 325 Mg Tablet) 975 mg PO NOW ONE Stop: 10/29/23 06:01 Last Admin: 10/29/23 06:07 Dose: 975 mg Documented By: JOANA Ondansetron HCl (Ondansetron 4 Mg Odt) 4 mg SL NOW ONE Stop: 10/29/23 07:57 Last Admin: 10/29/23 08:13 Dose: 4 mg Documented By: RB Vital Signs Vital signs: Vital Signs - 8 hr 10/29/23 04:15 10/29/23 04:17 10/29/23 04:17 Temperature 97.4 F L Pulse Rate 98 H 109 H Respiratory Rate 20 Blood Pressure 144/105 H 144/105 H Pulse Oximetry 96 97 Oxygen Delivery Method Room Air 10/29/23 04:30 10/29/23 04:30 10/29/23 05:00 Temperature Pulse Rate 100 H Respiratory Rate Blood Pressure 138/91 H 121/71 Pulse Oximetry 96 Oxygen Delivery Method 10/29/23 05:00 10/29/23 05:30 10/29/23 05:30 Temperature Pulse Rate 93 H 96 H Respiratory Rate Blood Pressure 140/84 Pulse Oximetry 96 96 Oxygen Delivery Method 10/29/23 06:00 10/29/23 06:00 10/29/23 06:30 Temperature Pulse Rate 104 H 90 Respiratory Rate Blood Pressure 130/78 Pulse Oximetry 96 94 Oxygen Delivery Method 10/29/23 06:30 10/29/23 07:00 10/29/23 07:00 Temperature Pulse Rate 81 Respiratory Rate Blood Pressure 153/95 H 136/96 H Pulse Oximetry 95 Oxygen Delivery Method 10/29/23 07:30 10/29/23 07:30 10/29/23 08:00 Temperature Pulse Rate 79 78 Respiratory Rate Blood Pressure 117/59 L Pulse Oximetry 95 96 Oxygen Delivery Method 10/29/23 08:00 10/29/23 08:30 10/29/23 08:30 Temperature Pulse Rate 68 Respiratory Rate Blood Pressure 128/78 117/87 Pulse Oximetry 96 Oxygen Delivery Method 10/29/23 09:00 10/29/23 09:00 Temperature Pulse Rate 71 Respiratory Rate Blood Pressure 125/79 Pulse Oximetry 95 Oxygen Delivery Method Medical Decision Making <Chelsie Shelton, - Last Filed: 11/01/23 08:44> Lab Data Labs: Lab Results 10/29/23 10/29/23 Range/Units 05:36 06:45 Chlamy pneumoniae PCR Not detected (Not Detect) Adenovirus (PCR) Not detected (Not Detect) B.parapertussis DNA PCR Not detected (Not Detecte) Coronavirus OC43 (PCR) Not detected (Not Detect) Coronavirus HKU1 (PCR) Not detected (Not Detect) Coronavirus 229E (PCR) Not detected (Not Detect) SARS-CoV-2 (PCR) Not detected (Not Detecte) Coronavirus NL63 (PCR) Not detected (Not Detect) Human Metapneumovir PCR Not detected (Not Detect) Influenza Type A (PCR) Not detected (Not Detect) Influenza Type B (PCR) Not detected (Not Detect) M. pneumoniae (PCR) Not detected (Not Detect) Parainfluenza 1 (PCR) Not detected (Not Detect) Parainfluenza 2 (PCR) Not detected (Not Detect) Parainfluenza 3 (PCR) Not detected (Not Detect) Parainfluenza 4 (PCR) Not detected (Not Detect) RSV (PCR) Not detected (Not Detect) Entero/Rhino (PCR) Not detected (Not Detect) Group A Strep (PCR) Negative (Negative) MDM Narrative Medical decision making narrative: 53-year-old with symptoms consistent with possible upper respiratory viral infe ction versus pharyngitis, patient does have bilateral tonsillar enlargement with erythema rapid strep is negative. Chest x-ray is appropriate. After discussion patient would like to add on respiratory panel this is pending. Patient's has a little bit of cough, lungs are clear exam is overall appropriate but chest x-ray is included Patient had labs the last week including CBC, CMP, showed a slight predominance of monocytes. Patient signed out to Dr. William while awaiting respiratory panel. Patient is otherwise well-appearing but does not appear to have upper respiratory infection. <Uriah William MD - Last Filed: 10/29/23 18:58> Lab Data Labs: Lab Results 10/29/23 10/29/23 Range/Units 05:36 06:45 Chlamy pneumoniae PCR Not detected (Not Detect) Adenovirus (PCR) Not detected (Not Detect) B.parapertussis DNA PCR Not detected (Not Detecte) Coronavirus OC43 (PCR) Not detected (Not Detect) Coronavirus HKU1 (PCR) Not detected (Not Detect) Coronavirus 229E (PCR) Not detected (Not Detect) SARS-CoV-2 (PCR) Not detected (Not Detecte) Coronavirus NL63 (PCR) Not detected (Not Detect) Human Metapneumovir PCR Not detected (Not Detect) Influenza Type A (PCR) Not detected (Not Detect) Influenza Type B (PCR) Not detected (Not Detect) M. pneumoniae (PCR) Not detected (Not Detect) Parainfluenza 1 (PCR) Not detected (Not Detect) Parainfluenza 2 (PCR) Not detected (Not Detect) Parainfluenza 3 (PCR) Not detected (Not Detect) Parainfluenza 4 (PCR) Not detected (Not Detect) RSV (PCR) Not detected (Not Detect) Entero/Rhino (PCR) Not detected (Not Detect) Group A Strep (PCR) Negative (Negative) MDM Narrative Additional Information: Stewart, 10/29/23 0700, sign-out from Dr. Shelton. Respiratory panel results pending. 53-year-old male followed for long COVID symptoms through the [place] [facility], with sore throat ear pain myalgias, rapid strep screen negative, chest x-ray negative, given Tylenol. When asked he elected to have a respiratory panel done, results are pending at this time. Assuming interim care. Respiratory panel negative. Patient has some nausea. Sublingual ondansetron, then oral fluids hips trial Patient was able to tolerate oral fluid challenge, ambulated, stable, discharged home with family Discharge Plan Departure Patient Disposition: Home Clinical Impression: Acute viral syndrome Activity Restrictions/Additional Instructions: Viral illness like symptoms, respiratory panel swab sent and was negative for COVID and influenza and other viruses tested. Chest x-ray negative. Take Tylenol as needed for muscle aches and fever. Drink plenty of fluids. Recheck with your regular provider if not improved in the next couple of days. Return to the emergency department for any change worsening symptoms or any concerns prior Prescriptions: No Action tadalafil 5 mg tablet 5 mg PO DAILY Qty: 90 2RF fexofenadine [Rachel Allergy] 180 mg tablet 180 mg PO DAILY Qty: 30 0RF pantoprazole 40 mg tablet,delayed release (DR/EC) See Rx Instructions PO 3XW Patient Comments: 40 mg PO three times a week. Rx Instructions: 40 mg PO three times a week. red yeast rice 600 mg capsule 1,200 mg PO BID levothyroxine [Synthroid] 125 mcg tablet 125 mcg PO DAILY mupirocin 2 % ointment 1 applictn TOP BID Qty: 15 0RF Referrals: Nadia Armstrong MD [Primary Care Provider] - Stand Alone Forms: Patient Portal/API
--- NOTE | 2023-10-29 05:54 | DI.RAD.S_ITS ---
PROCEDURE: XR CHEST 1V INDICATIONS: fever, chills, cough, on prednisone daily TECHNIQUE: One view of the chest was acquired. COMPARISON: [facility], CR, XR CHEST 2V, 05/07/2023, 13:16. [facility], CR, XR CHEST 2V, 06/19/2022, 10:47. FINDINGS: Surgical changes and devices: None. Lungs and pleura: Lungs are clear. No pleural effusions or pneumothorax. Mediastinum: Mediastinal contours appear normal. Heart size is normal. Bones and chest wall: No suspicious bony lesions. Overlying soft tissues appear unremarkable. IMPRESSION: No acute cardiopulmonary abnormality is seen. Findings are concordant with preliminary interpretation provided by [facility]. Dictated by: Walter Head M.D. on 10/29/2023 at 7:28 Approved by: Walter Head M.D. on 10/29/2023 at 7:28
[2023-10-29] MEDS: ACETAMINOPHEN 325 MG TABLET 975 MG PO (06:07)
[2023-10-29 06:11] LABS: Strep Grp A by PCR Rapid Negative (Negative)
[2023-10-29 07:39] LABS: Adenovirus Not Detected (Not Detect); B. parapertussis Not Detected (Not Detecte); Bordetella pertussis Not Detected (Not Detect); Chlamydophila pneumoniae Not Detected (Not Detect); Coronavirus 229E Not Detected (Not Detect); Coronavirus HKU1 Not Detected (Not Detect); Coronavirus NL 63 Not Detected (Not Detect); Coronavirus OC43 Not Detected (Not Detect); Human Metapneumovirus Not Detected (Not Detect); Human Rhinovirus/Enterovirus Not Detected (Not Detect); Influenza A Not Detected (Not Detect); Influenza B Not Detected (Not Detect); Mycoplasma pneumoniae Not Detected (Not Detect); Parainfluenza Virus 1 Not Detected (Not Detect); Parainfluenza Virus 2 Not Detected (Not Detect); Parainfluenza Virus 3 Not Detected (Not Detect); Parainfluenza Virus 4 Not Detected (Not Detect); Respiratory Syncytial Virus Not Detected (Not Detect); SARS- CoV-2 Not Detected (Not Detecte)
[2023-10-29] MEDS: ONDANSETRON 4 MG ODT SL (08:13)
== END 2023-10-29 10:21 | disposition home or self-care (01) ==
PROVIDERS: Emergency Medicine; Emergency Provider Emergency Medicine; PCP Family Medicine
DX: B34.9 Viral infection, unspecified (principal)
CPT/HCPCS: 71045; 87633; 87651; 99283

== ENCOUNTER → 2024-01-29 13:35 | Outpatient (ROUT) | payer OTHER, SELFPAY ==
[2024-01-29 13:42] LABS: Add Manual Diff / Slide Review NO; Basophils Absolute Auto 0 /uL (0-100); Basophils Percent Auto 0.6 % (0-2); Eosinophils Absolute Auto 0 /uL (0-450); Eosinophils Percent Auto 0.3 % (2-4); Hematocrit 48.3 % (41-53); Hemoglobin 15.8 g/dL (13.5-17.5); Lymphocytes Absolute Auto 600 /uL (1100-4500); Mean Corpuscular HGB Conc 32.6 % (30-36); Mean Corpuscular Hemoglobin 26.3 PG (26-34); Mean Corpuscular Volume 80.6 fL (80-100); Monocytes Absolute Auto 400 /uL (0-900); Monocytes Percent Auto 5.5 % (3-14); Neutrophils Absolute Auto 5600 /uL (1500-7000); Neutrophils Percent Auto 84.6 % (50-75); Platelet Count 299 X10^3/uL (150-400); Red Cell Distribution Width 17.7 % (11.6-14.8); White Blood Cell Count 6.6 X10^3/uL (4.5-11.0)
[2024-01-29 13:49] LABS: C-Reactive Protein Quant < 0.5 mg/dL (<1.0)
[2024-01-29 14:18] LABS: Erythrocyte Sedimentation Rate 1 MM/HR (0-15)
== END ==
PROVIDERS: PCP Family Medicine; Visit Provider Family Medicine
DX: S80.812A Abrasion, left lower leg, initial encounter (principal)
CPT/HCPCS: 85025; 85651; 86140; 87070; 87075; 87205

== ENCOUNTER → 2024-01-29 16:31 | Outpatient (CLI) | payer OTHER, SELFPAY ==
--- NOTE | 2024-01-29 16:32 | DI.MRI.S_ITS ---
PROCEDURE: MR LOWER LEG LT WO/W CON INDICATIONS: ABRASION / INFECTION TECHNIQUE: Noncontrast coronal T1 spin echo and STIR, sagittal T1 spin echo with fat saturation and STIR, axial T1 spin echo and T2 fast spin echo with fat saturation. After the administration of contrast, axial/sagittal/coronal T1 spin echo with fat saturation through the left lower length.. COMPARISON: None. FINDINGS: Image quality: Excellent. Bones: The visualized osseous structures shows no marrow edema. No fracture or dislocation. No cortical erosion or abnormal periosteal reaction. No area of abnormal intraosseous enhancement. Soft tissues: There is subcutaneous soft tissue edema along anterior and lateral aspect of proximal to mid lower leg. No discrete drainable peripherally enhancing fluid collection is seen. No intramuscular fluid signal or abnormal enhancement. No soft tissue mass is seen. No abnormal fluid distension of muscle fascia. IMPRESSION: 1. Suggestion of mild cellulitis along anterolateral aspect of proximal to mid lower leg. No discrete drainable fluid collection. No enhancing soft tissue mass. 2. No left lower leg muscle signal abnormalities or abnormal intramuscular enhancement. 3. No marrow edema. No fracture or dislocation. No abnormal intraosseous enhancement. Dictated by: Sandeep Thibodeaux M.D. on 01/29/2024 at 20:42 Approved by: Sandeep Thibodeaux M.D. on 01/29/2024 at 20:49
== END ==
LOC: MRI 16:31
PROVIDERS: PCP Family Medicine; Referring Provider Family Medicine; Visit Provider Family Medicine
DX: S80.812A Abrasion, left lower leg, initial encounter (principal); X58.XXXA Exposure to other specified factors, initial encounter
CPT/HCPCS: 73720; 85025; 85651; 86140; 87070; 87075; 87205; A9579

== ENCOUNTER → 2024-01-30 09:57 | Outpatient (CLI) | payer OTHER, SELFPAY | PROVIDERS: PCP Family Medicine; Referring Provider Family Medicine; Visit Provider Surgery | DX: S81.802A Unspecified open wound, left lower leg, initial encounter (principal); L98.8 Other specified disorders of the skin and subcutaneous tissue; M79.662 Pain in left lower leg; Z79.52 Long term (current) use of systemic steroids | CPT/HCPCS: 99203; 99214 ==

== ENCOUNTER → 2024-02-06 10:14 | Outpatient (CLI) | payer OTHER, SELFPAY | PROVIDERS: PCP Family Medicine; Referring Provider Family Medicine; Visit Provider Surgery | DX: S81.802A Unspecified open wound, left lower leg, initial encounter (principal); L98.8 Other specified disorders of the skin and subcutaneous tissue; U09.9 Post COVID-19 condition, unspecified; Z79.82 Long term (current) use of aspirin | CPT/HCPCS: 99212; 99213 ==

== ENCOUNTER → 2024-02-13 11:31 | Outpatient (CLI) | payer OTHER, SELFPAY | PROVIDERS: PCP Family Medicine; Referring Provider Family Medicine; Visit Provider Surgery | DX: S81.802A Unspecified open wound, left lower leg, initial encounter (principal); L98.8 Other specified disorders of the skin and subcutaneous tissue; U09.9 Post COVID-19 condition, unspecified; Z79.52 Long term (current) use of systemic steroids | CPT/HCPCS: 99212; 99213 ==

== ENCOUNTER → 2024-02-21 15:11 | Outpatient (CLI) | payer OTHER, SELFPAY | LOC: WC 15:11 | PROVIDERS: PCP Family Medicine; Referring Provider Family Medicine; Visit Provider Surgery | DX: S81.802D Unspecified open wound, left lower leg, subsequent encounter (principal) | CPT/HCPCS: 99213 ==

== ENCOUNTER → 2024-04-29 14:39 | Outpatient (CLI) | payer OTHER, SELFPAY | LOC: RESP 14:39 | PROVIDERS: PCP Family Medicine; Referring Provider Internal Medicine; Visit Provider Internal Medicine | DX: R06.00 Dyspnea, unspecified (principal); R94.2 Abnormal results of pulmonary function studies | CPT/HCPCS: 94060; 94618; 94726; 94729 ==

== ENCOUNTER → 2024-08-04 11:48 | Outpatient (CLI) | payer OTHER, SELFPAY ==
--- NOTE | 2024-08-04 11:51 | DI.RAD.S_ITS ---
PROCEDURE: XR CHEST 2V INDICATIONS: Pneumonia, unspecified organism TECHNIQUE: 2 views of the chest were acquired. COMPARISON: [facility], CR, XR CHEST 1V, 10/29/2023, 5:54. FINDINGS: Surgical changes and devices: None. Lungs and pleura: Lungs are clear. No pleural effusions or pneumothorax. Mediastinum: Mediastinal contours are normal. Heart size is normal. Bones and chest wall: No suspicious bony abnormalities. Soft tissues appear unremarkable. IMPRESSION: No acute cardiopulmonary abnormality is seen. Dictated by: Randy Lord M.D. on 08/05/2024 at 5:13 Approved by: Randy Lord M.D. on 08/05/2024 at 5:13
== END ==
PROVIDERS: PCP Family Medicine; Referring Provider Family Medicine; Visit Provider Family Medicine
DX: J18.9 Pneumonia, unspecified organism (principal)
CPT/HCPCS: 71046

== ENCOUNTER → 2024-08-19 13:55 | Outpatient (CLI) | payer OTHER, SELFPAY | LOC: LAB 13:56 | PROVIDERS: PCP Family Medicine; Referring Provider Family Medicine; Visit Provider Family Medicine | DX: U09.9 Post COVID-19 condition, unspecified (principal) | CPT/HCPCS: 36415; 86769 ==

== ENCOUNTER → 2024-11-17 12:04 | Outpatient (ROUT) | payer OTHER, SELFPAY ==
[2024-11-17 12:27] LABS: Hemoglobin 20.6 g/dL (13.5-17.5); Mean Corpuscular HGB Conc 32.5 % (30-36); Mean Corpuscular Hemoglobin 27.1 PG (26-34); Mean Corpuscular Volume 83.4 fL (80-100); Platelet Count 99 X10^3/uL (150-400); Red Cell Distribution Width 17.7 % (11.6-14.8); White Blood Cell Count 12.8 X10^3/uL (4.5-11.0)
[2024-11-17 12:51] LABS: Red Blood Cell Count 7.61 X10^6/uL (4.5-5.9)
[2024-11-17 12:53] LABS: Add Manual Diff / Slide Review YES; Hematocrit 63.5 % (41-53)
[2024-11-17 13:01] LABS: Neutrophils Absolute Manual 8576 /uL (3000-5900); Total Cells Counted 100
[2024-11-17 13:02] LABS: Anisocytosis 1+; Platelet Estimate Decreased on smear
[2024-11-17 13:31] LABS: Erythrocyte Sedimentation Rate 2 MM/HR (0-15)
[2024-11-17 14:25] LABS: Alanine Aminotransferase 40 IU/L (<50); Albumin 3.7 g/dL (3.5-5.0); Albumin Globulin Ratio 1.1 (1.0-2.8); Alkaline Phosphatase 75 U/L (38-126); Aspartate Aminotransferase 55 IU/L (17-59); BUN Creatinine Ratio 29.1 (6-22); Bilirubin Total 0.8 mg/dL (0.2-1.3); Blood Urea Nitrogen 37 mg/dL (9-20); Calcium 9.3 mg/dL (8.4-10.2); Carbon Dioxide 19 mmol/L (22-32); Chloride 101 mmol/L (98-107); Estimated Glomerular Filt Rate > 60 mL/min (>60); Globulin 3.3 g/dL (1.7-4.1); Glucose 175 mg/dL (70-99); HEMOLYSIS 38 (0-50); Sodium 133 mmol/L (137-145)
== END ==
LOC: LAB 12:05
PROVIDERS: PCP Family Medicine; Visit Provider Family Medicine
DX: T80.69XA Other serum reaction due to other serum, initial encounter (principal)
CPT/HCPCS: 80053; 85007; 85025; 85651

== ENCOUNTER → 2025-02-16 12:32 | Outpatient (ROUT) | payer OTHER, SELFPAY ==
[2025-02-16 12:41] LABS: Add Manual Diff / Slide Review NO; Hematocrit 48.6 % (41-53); Hemoglobin 16.7 g/dL (13.5-17.5); Lymphocytes Absolute Auto 1500 /uL (1100-4500); Mean Corpuscular HGB Conc 34.4 % (30-36); Mean Corpuscular Hemoglobin 29.5 PG (26-34); Mean Corpuscular Volume 85.6 fL (80-100); Platelet Count 231 X10^3/uL (150-400)
[2025-02-16 12:56] LABS: Blood Urea Nitrogen 13 mg/dL (9-20); Calcium 9.4 mg/dL (8.4-10.2); Carbon Dioxide 22 mmol/L (22-32); Chloride 107 mmol/L (98-107); Estimated Glomerular Filt Rate > 60 mL/min (>60); Glucose 95 mg/dL (70-99); HEMOLYSIS < 15 (0-50); Potassium 4.8 mmol/L (3.4-5.1); Sodium 138 mmol/L (137-145)
== END ==
PROVIDERS: PCP Family Medicine; Visit Provider Family Medicine
DX: E27.1 Primary adrenocortical insufficiency (principal); D75.1 Secondary polycythemia; T88.7XXA Unspecified adverse effect of drug or medicament, initial encounter
CPT/HCPCS: 80048; 82533; 85025

== ENCOUNTER → 2025-03-10 10:27 | Outpatient (CLI) | payer OTHER, SELFPAY | PROVIDERS: PCP Family Medicine; Referring Provider Family Medicine; Visit Provider Family Medicine | DX: U09.9 Post COVID-19 condition, unspecified (principal) | CPT/HCPCS: 36415; 86769 ==